=== PATIENT | male | born 1970 | race Caucasian/White ===

== ENCOUNTER 2018-09-10 17:01 | Inpatient (IN) | payer SELFPAY ==
[~2018-09-10] VITALS: Ht 175.3 cm; Wt 79.4 kg
--- NOTE | 2018-09-10 17:05 | NUR ---
PT AMBULATORY TO ER BED 06 C/O LT FLANK PAIN R/T LLQ ABDOMEN. ALSO ENDORSES DYSURIA AND WEAK STREAM. HX TO KIDNEY STONES. GOWNED AND PLACED ON MONITOR. VSS. AWAITING MD COCHRAN.
[2018-09-10 17:55] LABS: BASOPHILS % (AUTO) 0.3 % (0.0-2.0); EOSINOPHILS % (AUTO) 3.1 % (0.0-6.0); HEMATOCRIT 37 % (39-51); HEMOGLOBIN 12.5 g/dL (13.5-17.5); LYMPHOCYTES # (AUTO) 1.2 /CMM (0.8-4.8); LYMPHOCYTES % (AUTO) 23.5 % (20.0-44.0); MEAN CORPUSCULAR HGB CONC 34 g/dl (31.0-36.0); MEAN CORPUSCULAR VOLUME 95 fL (80-96); MONOCYTES # (AUTO) 0.5 /CMM (0.1-1.30); MONOCYTES % (AUTO) 9.2 % (2.0-12.0); NEUTROPHILS # (AUTO) 3.2 /CMM (1.8-8.9); NEUTROPHILS % (AUTO) 63.9 % (43.0-81.0); PLATELET COUNT (AUTO) 210 /CMM (150-450); RED BLOOD CELL COUNT(AUTO) 3.84 MIL/uL (4.5-6.0)
[2018-09-10 18:00] LABS: CALCIUM, SERUM 8.3 mg/dL (8.5-10.1); CREATININE 0.9 mg/dL (0.6-1.3); POTASSIUM 3.6 mmol/L (3.5-5.1)
[2018-09-10] MEDS ORDERED: IV NS 0.9% 1,000 ML BAG IV ONE (18:00)
[2018-09-10] MEDS ORDERED: ONDANSETRON HCL/PF 4 MG/2 ML VIAL IVP ONE (18:00)
[2018-09-10] MEDS ORDERED: HYDROMORPHONE INJ 2 MG/ML DISP.SYRIN IV ONE (18:00)
[2018-09-10] MEDS ORDERED: HYDROMORPHONE INJ 2 MG/ML DISP.SYRIN ONE ×3 (18:02→20:04)
[2018-09-10] MEDS ORDERED: ONDANSETRON HCL/PF 4 MG/2 ML VIAL ONE (18:02)
--- NOTE | 2018-09-10 18:41 | NUR ---
PT TO RADIOLOGY FOR ABDOMINAL CT SCA N VIA RNEY.
[2018-09-10 18:53] LABS: APPEARANCE,URINE Clear (CLEAR); BILIRUBIN,URINE Negative (NEGATIVE); BLOOD, URINE Negative Ery/uL (NEGATIVE); COLOR,URINE Yellow (YELLOW); KETONES,URINE Trace (NEGATIVE); LEUKOCYTE ESTERASE ,URINE Negative (NEGATIVE); NITRITE, URINE Negative (NEGATIVE); PH,URINE 6.5 (5.0-8.0); PROTEIN,URINE Negative (NEGATIVE); UGLUCOSE Negative (NEGATIVE); UROBILINOGEN,URINE 0.2 EU/dL (0.2)
--- NOTE | 2018-09-10 18:57 | NUR ---
PT C/O SEVERE ABDOMIANL PAIN. MEDICATED ORDERED. SEE EMAR.
[2018-09-10] MEDS ORDERED: HYDROMORPHONE INJ 0.5 MG/0.5 ML SYRINGE IV ONE (19:00)
[2018-09-10 19:21] LABS: BACTERIA,URINE Rare /HPF (None Seen); RBC,URINE 0-2 /HPF (0-2)
[2018-09-10 19:23] LABS: SQUAMOUS EPITHELIAL CELL,UR Few /HPF (None Seen)
--- NOTE | 2018-09-10 19:30 | NUR ---
REPORT GIVEN TO YOHAN LOYOLA FOR HILARIA.
--- NOTE | 2018-09-10 19:43 | NUR ---
RECEIVERD PATIENT STABLE ,AWAKE,ALERT, STILL WITH ABDOMINAL PAIN /.NOT IN ANY DISTRESS.
[2018-09-10] MEDS ORDERED: HYDROMORPHONE 1 MG/1 ML DISP.SYRIN IV ONE ×2 (20:00→22:30)
[2018-09-10 20:20] LABS: ALBUMIN 3.5 g/dL (3.4-5.0); BILIRUBIN,TOTAL 0.2 mg/dL (0.2-1.0); TOTAL PROTEIN, SERUM 6.9 g/dL (6.4-8.2)
--- NOTE | 2018-09-10 21:33 | NUR ---
REPORT GIVEN TO TANIKA/RN ON BEHALF OF PRIMARY NURSE YOHAN.
[2018-09-10 21:36] VITALS: BP 149/88
--- NOTE | 2018-09-10 21:45 | NUR ---
RN MS ADMISSION NOTES RECEIVED PATIENT FROM ER VIA RMASOOD. DX. INTRACTABLE ABDOMINAL PAIN. PATIENT IS ALERT AND ORIENTED X4, VERBALLY RESPONSIVE, ABLE TO MAKE NEEDS KNOWN. BREATHING EVEN AND UNLABORED. NO SOB NOTED. TOLERATING ROOM AIR. WITH COMPLAINTS OF PAIN ON THE LEFT LOWER QUADRANT 10/10. PATIENT AGITATED AND IS REQUESTING FOR PAIN MEDICATION. INFORMED PATIENT THAT I WILL GET AN ORDER FROM THE DOCTOR FIRST - VERBALIZED UNDERSTANDING. SKIN DRY AND WARM TO TOUCH. AFEBRILE. PATIENT REFUSED SKIN CHECK. REFUSED TO TAKE CLOTHES OFF AND SWITCH TO GOWN. PATIENT STATED THAT HE "DOESN'T HAVE WOUNDS." EXPLAINED THE RISKS AND BENEFITS BUT STILL REFUSED. PATIENT ALSO REFUSED TO HAVE VITAL SIGNS TAKEN DESPITE EXPLANATION OF RISKS AND BENEFITS. OPERATIONS SUPERVISOR 2ND SHIFT OFFERED X3 BUT STILL REFUSED. ORIENTED TO THE USE OF UNIT AMENITIES. BELONGINGS ACCOUNTED FOR. SAFETY MEASURES IN PLACE. CALL LIGHT WITHIN REACH. WILL CONTINUE TO MONITOR.
--- NOTE | 2018-09-10 22:24 | NUR ---
RN MS NOTES PATIENT ANGRY AND CUSSING BECAUSE NO PAIN MEDICATION WAS ORDERED YET. INFORMED PATIENT THAT I AM STILL WAITING FOR THE DOCTOR TO INPUT ORDERS. HOWEVER, I WILL PAGE THE DOCTOR FOR A PAIN MEDICATION RIGHT AWAY. PAGED INFORMATION OPERATOR ROCK BARRERA AND INFORMED OF PATIENT'S PAIN AND HIS REQUEST FOR PAIN MEDICATION. PER TORSTEN WILKERSON, DILAUDID 1MG IV X1 ONLY, AND TO FOLLOW UP REGARDING THE STAT CTA. ORDER NOTED AND CARRIED OUT.
--- NOTE | 2018-09-10 22:25 | NUR ---
RN MS NOTED TANIKA, PERSONAL TRAINER CALLED TO XRAY TO F/U REGARDING STAT CTA. PER CHARGE NURSE, THEY ARE DOING PEOPLE IN THE ER FIRST AND WILL GET TO PATIENT ANG. CONSENT WAS OBTAINED FROM THE PATIENT FOR A CTA OF ABDOMEN AND PELVIS.
--- NOTE | 2018-09-10 22:38 | NUR ---
RN MS NOTES PATIENT WENT TO THE BATHROOM AND STATED THAT HE "NEEDED TO TAKE A DUMP." AFTER ABOUT 2 MINUTES, THE WENT TO NURSE AND INFORMED REGARDING PATIENT ACCIDENTLY TAKING OUT IV AFTER TRYING TO TAKE OFF HIS SHIRT. NURSE WENT TO PATIENT AND NOTED PATIENT APPLYING PRESSURE ON THE IV SITE. OLD IV LINE WAS ON THE PATIENTS BED. INFORMED PATIENT THAT I WILL HAVE INSERT A NEW ONE IV LINE. PATIENT AGREED.
--- NOTE | 2018-09-10 22:45 | NUR ---
RN MS NOTES THAI, RAILCAR BRAKE OPERATOR WENT TO RN AND INFORMED THAT PATIENT HAD GONE DOWN THE ELEVATOR TO "SAY GOODBYE TO A RELATIVE WHO IS GOING OVERSEAS," BUT THE WILL STAY IN THE ROOM. WENT TO PATIENT'S ROOM AND CONFIRMED SITTING NEXT TO PATIENT'S BED. ASKED IF PATIENT IS COMING BACK, STATED YES. XRAY ALSO ARRIVED IN THE UNIT TO DO CTA BUT INFORMED HIM THAT PATIENT WENT DOWN TO MEET WITH A RELATIVE - STATED THEY WILL COME BACK. RAILCAR BRAKE OPERATOR WENT DOWN TO LOOK FOR PATIENT. ABOUT MINUTES AFTER, I WENT TO PATIENT'S ROOM TO SEE IF THE PATIENT HAD ARRIVED SO I CAN INSERT AN IV, BUT WAS NO LONGER IN THE ROOM. PER CHARGE NURSE, WENT DOWN TO GO TO THEIR DAUGHTER WHO IS WAITING DOWNSTAIRS. RAILCAR BRAKE OPERATOR THEN WENT UP WITH 2 SECURITY GUARDS AND INFORMED US THAT AND PATIENT WERE SEEN DRIVING OFF IN A HURRY. PATIENT HAD NO IV BUT WAS STILL WEARING HIS ARM BAND. TANIKA WIDE PIECE GOODS INSPECTOR, INFORMED FOOD ADVISER REGARDING PATIENT'S ELOPEMENT.
--- NOTE | 2018-09-10 23:20 | NUR ---
RN NOTES COLLECTION SYSTEMS WORKER ROCK BARRERA INFORMED OF PATIENT'S ELOPEMENT.
== END 2018-09-10 22:45 | disposition left against medical advice (07) | DRG 301 ==
LOC: ER 17:07 → MED 21:28
PROVIDERS: ADMIT Nurse Practitioner Acute Care; ATTEND Nurse Practitioner Acute Care
DX: I71.00 Dissection of unspecified site of aorta (principal); Z82.3 Family history of stroke; D63.8 Anemia in other chronic diseases classified elsewhere; Z98.890 Other specified postprocedural states; Z87.891 Personal history of nicotine dependence; Z88.6 Allergy status to analgesic agent; Z88.8 Allergy status to other drugs, medicaments and biological substances; Z76.5 Malingerer [conscious simulation]; Z87.442 Personal history of urinary calculi; Z83.3 Family history of diabetes mellitus; Z82.49 Family history of ischemic heart disease and other diseases of the circulatory system
CPT/HCPCS: 36415; 80048-TC; 80076-TC; 81000-TC; 83605-TC; 83690-TC; 85025-TC; 87081-TC; G0378; J1170; J2405; J7030

== ENCOUNTER 2019-01-01 10:42 | Emergency (ER) | payer MEDICAID ==
[~2019-01-01] VITALS: Ht 175.3 cm; Wt 79.4 kg
[2019-01-01 10:50] VITALS: BP 151/95
--- NOTE | 2019-01-01 10:50 | NUR ---
PT BIBWIFE FOR S/P FALL FROM 1 STORY, C/O BACK PAIN; PT AAOX4, PT ON MONITOR, TO BED 7, VSS, NAD NOTED, PENDING MD COCHRAN
[2019-01-01] MEDS ORDERED: MORPHINE SULFATE INJ 4 MG/ML DISP.SYRIN ONE ×2 (11:27→12:13)
[2019-01-01] MEDS ORDERED: ONDANSETRON HCL/PF 4 MG/2 ML VIAL ONE (11:27)
[2019-01-01 11:29] LABS: BASOPHILS # (AUTO) 0.1 /CMM (0.0-0.2); BASOPHILS % (AUTO) 1.6 % (0.0-2.0); EOSINOPHILS % (AUTO) 1.5 % (0.0-6.0); HEMATOCRIT 40 % (39-51); HEMOGLOBIN 13.6 g/dL (13.5-17.5); LYMPHOCYTES # (AUTO) 1.1 /CMM (0.8-4.8); LYMPHOCYTES % (AUTO) 21.9 % (20.0-44.0); MEAN CORPUSCULAR HGB CONC 34 g/dl (31.0-36.0); MEAN CORPUSCULAR VOLUME 95 fL (80-96); MONOCYTES # (AUTO) 0.5 /CMM (0.1-1.30); NEUTROPHILS # (AUTO) 3.4 /CMM (1.8-8.9); PLATELET COUNT (AUTO) 209 /CMM (150-450); RED BLOOD CELL COUNT(AUTO) 4.21 MIL/uL (4.5-6.0); WHITE BLOOD COUNT (AUTO) 5.2 K/uL (4.3-11.0)
[2019-01-01] MEDS ORDERED: IV NS 0.9% 1,000 ML BAG IV ONE (11:30)
[2019-01-01] MEDS ORDERED: ONDANSETRON HCL/PF 4 MG/2 ML VIAL IVP ONE (11:30)
[2019-01-01] MEDS ORDERED: MORPHINE SULFATE INJ 2 MG/ML DISP.SYRIN IV ONE ×2 (11:30→12:30)
[2019-01-01 11:40] LABS: CALCIUM, SERUM 8.8 mg/dL (8.5-10.1); CREATININE 0.7 mg/dL (0.6-1.3); POTASSIUM 3.8 mmol/L (3.5-5.1)
[2019-01-01 11:47] LABS: ALBUMIN 3.9 g/dL (3.4-5.0); BILIRUBIN,DIRECT 0.1 mg/dL (0.0-0.2); BILIRUBIN,TOTAL 0.5 mg/dL (0.2-1.0); TOTAL PROTEIN, SERUM 7.4 g/dL (6.4-8.2)
[2019-01-01] MEDS ORDERED: CT SWABBABLE VALVE TRANS SET 1 EA INFUS.SET MC ONE (12:11)
[2019-01-01] MEDS ORDERED: IV NS 0.9% 250 ML IV ONE (12:11)
[2019-01-01] MEDS ORDERED: IOHEXOL-300 100 ML VIAL IV ONE (12:11)
[2019-01-01] MEDS ORDERED: HYDROMORPHONE 1 MG/1 ML DISP.SYRIN ONE (13:24)
[2019-01-01] MEDS ORDERED: HYDROMORPHONE 1 MG/1 ML DISP.SYRIN IV ONE (13:30)
--- NOTE | 2019-01-01 13:30 | NUR ---
Patient discharged to home in stable condition. Written and verbal after care instructions given. Patient verbalizes understanding of instruction. IV removed. Catheter intact and site benign. Pressure and 4x4 applied to site. No bleeding noted.
== END 2019-01-01 14:42 | disposition home or self-care (01) ==
LOC: ER 10:42
DX: S20.211A Contusion of right front wall of thorax, initial encounter (principal); S10.83XA Contusion of other specified part of neck, initial encounter; S00.83XA Contusion of other part of head, initial encounter; R51 Headache; Z87.442 Personal history of urinary calculi; Z88.6 Allergy status to analgesic agent; W18.39XA Other fall on same level, initial encounter; Y93.89 Activity, other specified; Y92.89 Other specified places as the place of occurrence of the external cause; Y99.8 Other external cause status
CPT/HCPCS: 36415; 70450; 71260; 72125; 74177; 80048; 80076; 85025; 85730; 96374; 96375; 96376; 99284; J1170; J2270 ×2; J2405; J7050; Q9967

== ENCOUNTER 2019-02-19 16:11 | Emergency (ER) | payer SELFPAY ==
[~2019-02-19] VITALS: Ht 175.3 cm; Wt 79.4 kg
--- NOTE | 2019-02-19 16:30 | NUR ---
LLQ ABDOMINAL PAIN, SUDDEN ONSET X 1400 TODAY, +NAUSEA. PATIENT A/OX4, ATTACHED ON THE MONITOR. NO DISTRESS NOTED.
[2019-02-19] MEDS ORDERED: ONDANSETRON HCL/PF 4 MG/2 ML VIAL ONE (16:51)
[2019-02-19] MEDS ORDERED: MORPHINE SULFATE INJ 4 MG/ML DISP.SYRIN ONE (16:51)
[2019-02-19 17:00] LABS: BASOPHILS # (AUTO) 0.1 /CMM (0.0-0.2); BASOPHILS % (AUTO) 1.7 % (0.0-2.0); EOSINOPHILS % (AUTO) 0.8 % (0.0-6.0); HEMATOCRIT 34 % (39-51); HEMOGLOBIN 11.5 g/dL (13.5-17.5); LYMPHOCYTES # (AUTO) 0.9 /CMM (0.8-4.8); LYMPHOCYTES % (AUTO) 18.9 % (20.0-44.0); MEAN CORPUSCULAR HGB CONC 34 g/dl (31.0-36.0); MEAN CORPUSCULAR VOLUME 95 fL (80-96); MONOCYTES # (AUTO) 0.5 /CMM (0.1-1.30); MONOCYTES % (AUTO) 11.5 % (2.0-12.0); NEUTROPHILS # (AUTO) 3.2 /CMM (1.8-8.9); NEUTROPHILS % (AUTO) 67.1 % (43.0-81.0); PLATELET COUNT (AUTO) 174 /CMM (150-450); RED BLOOD CELL COUNT(AUTO) 3.55 MIL/uL (4.5-6.0); WHITE BLOOD COUNT (AUTO) 4.8 K/uL (4.3-11.0)
[2019-02-19] MEDS ORDERED: ONDANSETRON HCL/PF 4 MG/2 ML VIAL IVP ONE (17:00)
[2019-02-19] MEDS ORDERED: IV NS 0.9% 1,000 ML BAG IV ONE (17:00)
[2019-02-19] MEDS ORDERED: MORPHINE SULFATE INJ 2 MG/ML DISP.SYRIN IV ONE (17:00)
[2019-02-19 17:06] LABS: CALCIUM, SERUM 8.6 mg/dL (8.5-10.1); CREATININE 0.7 mg/dL (0.6-1.3); POTASSIUM 3.2 mmol/L (3.5-5.1)
[2019-02-19 17:12] LABS: ALBUMIN 3.4 g/dL (3.4-5.0); BILIRUBIN,DIRECT 0.1 mg/dL (0.0-0.2); BILIRUBIN,TOTAL 0.3 mg/dL (0.2-1.0); TOTAL PROTEIN, SERUM 6.6 g/dL (6.4-8.2)
--- NOTE | 2019-02-19 18:01 | NUR ---
PATIENT LEFT AMA, SIGNED PAPERWORK. DANIELLE DALY AWARE, EXPLAINED RISKS, BENEFITS AND ALTERNATIVES. PATIENT STILL WANTS TO LEAVE. PIV REMOVED. PATIENT LEFT IN STABLE CONDITION.
[2019-02-19 18:04] VITALS: BP 139/89
== END 2019-02-19 18:04 | disposition left against medical advice (07) ==
LOC: ER 16:13
DX: R10.32 Left lower quadrant pain (principal); Z87.442 Personal history of urinary calculi; Z88.6 Allergy status to analgesic agent
CPT/HCPCS: 36415; 80048; 80076; 83690; 85025; 96374; 96375; 99283; J2270; J2405; J7030

== ENCOUNTER 2023-09-24 10:24 | Emergency (ER) | payer MEDICAID ==
[~2023-09-24] VITALS: Ht 175.3 cm; Wt 77.6 kg
[2023-09-24] MEDS ORDERED: MORPHINE SULFATE INJ 4 MG/ML DISP.SYRIN ONE (10:47)
[2023-09-24 11:00] VITALS: BP 140/99; TEMP 98.1; O2SAT 98
[2023-09-24] MEDS ORDERED: MORPHINE SULFATE INJ 2 MG/ML DISP.SYRIN IV ONE (11:00)
[2023-09-24] MEDS ORDERED: HYDROCODONE/APAP 10/325MG TABLET PO ONE (12:30)
== END 2023-09-24 12:16 | disposition left against medical advice (07) ==
LOC: ER 10:28
DX: M54.50 Low back pain, unspecified (principal); Z87.442 Personal history of urinary calculi; Z88.6 Allergy status to analgesic agent; Z88.8 Allergy status to other drugs, medicaments and biological substances; W01.0XXA Fall on same level from slipping, tripping and stumbling without subsequent striking against object, initial encounter; Y93.89 Activity, other specified; Y92.89 Other specified places as the place of occurrence of the external cause; Y99.8 Other external cause status
CPT/HCPCS: 99285; 96374; 72131; J2270

== ENCOUNTER 2024-02-06 07:34 | Emergency (ER) | payer MEDICAID ==
[~2024-02-06] VITALS: Ht 172.7 cm; Wt 77.1 kg
[2024-02-06] MEDS ORDERED: LORA-259 PO (07:56)
[2024-02-06] MEDS ORDERED: LORAZEPAM 1 MG TABLET ONE (08:28)
[2024-02-06] MEDS: LORAZEPAM 1 MG TABLET PO ONE (08:31)
[2024-02-06 08:39] VITALS: BP 141/81; TEMP 98.1; O2SAT 96
== END 2024-02-06 08:40 | disposition home or self-care (01) ==
LOC: ER 07:38
DX: F41.9 Anxiety disorder, unspecified (principal); Z88.6 Allergy status to analgesic agent; Z88.8 Allergy status to other drugs, medicaments and biological substances

== ENCOUNTER 2025-06-08 20:55 | Emergency (ER) | payer MEDICAID ==
[~2025-06-08] VITALS: Ht 175.3 cm; Wt 70.3 kg
[~2025-06-08 20:55] MED LIST: LORA-259 PO
[2025-06-08] MEDS ORDERED: ACETAMINOPHEN ES 500 MG TABLET ONE (21:37)
[2025-06-08] MEDS ORDERED: BACLOFEN (10 MG) 10 MG TABLET ONE (21:38)
[2025-06-08] MEDS: BACLOFEN (10 MG) 10 MG TABLET PO ONE (21:48)
[2025-06-08] MEDS: ACETAMINOPHEN ES 500 MG TABLET PO ONE (21:49)
[2025-06-08 21:51] VITALS: BP 133/93; TEMP 98.5; O2SAT 97
== END 2025-06-08 21:52 | disposition left against medical advice (07) ==
LOC: ER 20:58
DX: M54.50 Low back pain, unspecified (principal); Z53.21 Procedure and treatment not carried out due to patient leaving prior to being seen by health care provider